=== PATIENT | female | born 1990 | race African-American/Black ===

== ENCOUNTER 2022-02-17 10:22 | Emergency (ER) | payer MEDICAID, OTHER ==
[~2022-02-17] VITALS: Ht 162.6 cm; Wt 89.0 kg
[2022-02-17 11:17] VITALS: BP 129/75
== END 2022-02-17 18:41 | disposition left against medical advice (07) ==
LOC: ER 10:22
DX: M54.59 Other low back pain (principal); M54.6 Pain in thoracic spine; Z98.890 Other specified postprocedural states
CPT/HCPCS: 99281

== ENCOUNTER 2022-12-11 18:25 | Emergency (ER) | payer OTHER ==
[~2022-12-11] VITALS: Ht 162.6 cm; Wt 103.0 kg
[2022-12-11 18:28] VITALS: O2SAT 99
[2022-12-11] MEDS ORDERED: POLY10DR RIGHTEYE (20:23)
[2022-12-11 21:01] VITALS: BP 131/79; PULSE 88; RESP 16; TEMP 98.1
== END 2022-12-11 21:04 | disposition home or self-care (01) ==
LOC: ER 18:25
DX: H10.9 Unspecified conjunctivitis (principal); Z98.51 Tubal ligation status
CPT/HCPCS: 99283

== ENCOUNTER 2023-09-04 19:17 | Emergency (ER) | payer MEDICAID, OTHER ==
[~2023-09-04] VITALS: Ht 162.6 cm; Wt 103.0 kg
[~2023-09-04 19:17] MED LIST: POLY10DR RIGHTEYE
[2023-09-04 19:39] VITALS: BP 149/75; PULSE 93; RESP 18; TEMP 98.2; O2SAT 100
[2023-09-04] MEDS ORDERED: ONDANSETRON 4MG ODT PO ONE (22:00)
== END 2023-09-04 22:32 | disposition home or self-care (01) ==
LOC: ER 19:17
DX: B34.8 Other viral infections of unspecified site (principal); Z98.51 Tubal ligation status; Z98.890 Other specified postprocedural states
CPT/HCPCS: 99281